=== PATIENT | female | born 1995 ===

== ENCOUNTER 2020-12-08 04:41 | Inpatient (IN) | payer MEDICAID ==
[~2020-12-08] VITALS: Ht 157.5 cm; Wt 70.0 kg
[2020-12-08] MEDS ORDERED: OXYTOCIN 30U/ 0.9% NaCL 500ML 500 ML ONE (04:44)
[2020-12-08] MEDS ORDERED: LIDOCAINE 1%, 20ML ONE (04:59)
[2020-12-08] MEDS ORDERED: OXYTOCIN 30U/ 0.9% NaCL 500ML 500 ML IV ONE (05:00)
[2020-12-08] MEDS ORDERED: FENTANYL PF 100 MCG/2ML IVPush PRN (05:00)
[2020-12-08] MEDS ORDERED: LACTATED RINGERS 1,000 ML IV SCH (05:00)
[2020-12-08 05:21] LABS: BASOPHILS % (AUTO) 0 % (0-1); EOSINOPHILS % (AUTO) 0 % (1-7); LYMPHOCYTES % (AUTO) 4 % (22-44); MEAN CORPUSCULAR HEMOGLOBIN 32.5 pg (27.0-34.8); MEAN PLATELET VOLUME 9.3 fL (7.4-10.4); MONOCYTES % (AUTO) 5 % (2-9); NEUTROPHILS % (AUTO) 91 % (42-75); PLATELET COUNT 156 x10^3/uL (130-400); RED BLOOD COUNT 3.67 x10^6/uL (3.82-5.3)
[2020-12-08 05:25] LABS: MD NO
[2020-12-08] MEDS ORDERED: SIMETHICONE 80 MG CHEW TAB PO PRN (05:30)
[2020-12-08] MEDS ORDERED: DOCUSATE 100 MG CAPSULE PO PRN (05:30)
[2020-12-08] MEDS ORDERED: OXYTOCIN 30U/ 0.9% NaCL 500ML 500 ML IV SCH (05:30)
[2020-12-08] MEDS ORDERED: IBUPROFEN 600 MG TABLET PO PRN (05:30)
[2020-12-08] MEDS ORDERED: CALCIUM CARBONATE 500 MG TAB.CHEW PO PRN (05:30)
[2020-12-08] MEDS ORDERED: ONDANSETRON 2MG/ML, 2ML IV PRN (05:30)
[2020-12-08] MEDS ORDERED: ACETAMINOPHEN 325 MG TABLET PO PRN ×2 (05:30)
[2020-12-08] MEDS ORDERED: PRENATAL VIT/IRON/FA 1 EACH TABLET PO SCH (09:00)
== END 2020-12-08 07:40 | disposition left against medical advice (07) | DRG 776 ==
LOC: LDOP 04:41 → LDIP 05:00
PROVIDERS: ADMIT Obstetrics & Gynecology; ATTEND Obstetrics & Gynecology
PROC: 0HQ9XZZ Repair Perineum Skin, External Approach (ICD-10-PCS; principal; 2020-12-08)
DX: Z39.0 Encounter for care and examination of mother immediately after delivery (principal); O99.325 Drug use complicating the puerperium; F12.90 Cannabis use, unspecified, uncomplicated; O70.0 First degree perineal laceration during delivery
CPT/HCPCS: 36415; 85025; G0378; J3010; J2590